=== PATIENT | female | born 1950 ===

== ENCOUNTER 2018-04-21 09:50 | Emergency (ER) | payer BC ==
[2018-04-21 09:59] VITALS: TEMP 98.5; BMI 24.3
[2018-04-21] MEDS ORDERED: DiphenhydrAMINE 50 mg/ml Inj IVP STA (10:18)
--- NOTE | 2018-04-21 10:22 | ED PDOC ---
HPI: Skin/Bite Injury Time Seen by Provider: 04/21/18 09:54 Chief Complaint (Provider): Rash History Per: Patient Additional Complaint(s): 67 yo female, PMH of HTN, presents to ED for evaluation of itchy, red rash to chest and upper extremities x 8 days now. Pt denies any new lotions, detergents, medications or foods. pt took Benadryl a few times over the last week with transient relief. Past Medical History Reviewed: Nursing Documentation, Vital Signs Vital Signs: Last Vital Signs Temp 98.5 F 04/21/18 09:59 Pulse 73 04/21/18 09:59 Resp 16 04/21/18 09:59 BP 161/73 H 04/21/18 09:59 Pulse Ox 98 04/21/18 09:59 - Medical History PMH: No Chronic Diseases - Surgical History Surgical History: No Surg Hx - Family History Family History: States: No Known Family Hx - Living Arrangements Living Arrangements: With Family - Social History Current smoker - smoking cessation education provided: No Alcohol: Social Drugs: Denies - Home Medications Home Medications: Ambulatory Orders Medication Instructions Recorded Methylprednisolone [Medrol Dose 4 mg PO DAILY #21 mg 04/21/18 Pack (21 tabs)] - Allergies Allergies/Adverse Reactions: Allergies Allergy/AdvReac Type Severity Reaction Status Date / Time No Known Allergies Allergy Verified 04/21/18 10:18 Review of Systems Skin: Positive for: Rash Physical Exam - Reviewed Nursing Documentation Reviewed: Yes Vital Signs Reviewed: Yes - Physical Exam Appears: Positive for: Well, Non-toxic, No Acute Distress Head Exam: Positive for: ATRAUMATIC, NORMAL INSPECTION, NORMOCEPHALIC Skin: Positive for: Normal Color, Warm, Rash (erythematous maculopapular rash over chest wall) Eye Exam: Positive for: EOMI, Normal appearance, PERRL ENT: Positive for: Normal ENT Inspection Neck: Positive for: Normal, Painless ROM Cardiovascular/Chest: Positive for: Regular Rate, Rhythm Respiratory: Positive for: CNT, Normal Breath Sounds Gastrointestinal/Abdominal: Positive for: Normal Exam, Soft Back: Positive for: Normal Inspection Extremity: Positive for: Normal ROM Neurologic/Psych: Positive for: Alert, Oriented - ECG O2 Sat by Pulse Oximetry: 98 Medical Decision Making Medical Decision Making: IV Pepcid, benadryl and Solumedrol administered. Pt on re-eval reports feeling greatly improved. rash noticeably diminished Disposition - Clinical Impression Clinical Impression: Allergic reaction - Patient ED Disposition Is Patient to be Admitted: No - Disposition Disposition: Routine/Home Disposition Time: 13:00 Condition: STABLE Prescriptions: Methylprednisolone [Medrol Dose Pack (21 tabs)] 4 mg PO DAILY #21 mg Instructions: Hives Forms: [facility] ([place])
[2018-04-21] MEDS ORDERED: DiphenhydrAMINE 50 mg/ml Inj ONE (11:06)
[2018-04-21 14:13] VITALS: BP 145/88; PULSE 76; RESP 18; O2SAT 100
== END 2018-04-21 13:27 | disposition home or self-care (01) ==
LOC: H.ER 09:50
DX: T78.40XA Allergy, unspecified, initial encounter (principal); I10 Essential (primary) hypertension
CPT/HCPCS: 96374; 96375; 99283; J1200